=== PATIENT | male | born 1980 | race Caucasian/White ===

== ENCOUNTER 2025-04-25 17:31 | Emergency (ER) | payer OTHER, SELFPAY ==
--- NOTE | ~2025-04-25 | XR_ITS ---
EXAMINATION: XR chest 2V Exam Date/Time: 04/25/2025 18:10 CDT HISTORY: CP Comparison: 07/11/2019. RESULT: Lines, tubes, and devices: None. Lungs and pleura: Clear. Left lower lobe calcified granuloma. Cardiomediastinal silhouette: Stable. Other: No acute osseous or upper abdominal finding. IMPRESSION: No acute cardiopulmonary process. Reviewed, dictated and finalized at location K.
--- NOTE | ~2025-04-25 | CT_ITS ---
EXAMINATION: CTA chest PE protocol DATE: 04/25/2025 19:56 INDICATION: cp, sob, hx PE TECHNIQUE: Computed tomography angiography (CTA) of the chest was performed with 100 mL Omnipaque-350 intravenous contrast timed to evaluate the pulmonary arteries. Coronal maximum intensity projection 3D-reconstructions were created by the technologist. The dose-length product (DLP) was 549.89 mGy-cm. Automated exposure control and iterative reconstruction technique were employed. COMPARISON: 07/11/2019; x-ray chest 04/25/2025. FINDINGS: Lung parenchyma and airways: Calcified left lower lobe granuloma. Stable right lower lobe granuloma. Patent airways. Pleura: Unremarkable. Thoracic inlet, axillae and chest wall: Unremarkable. Thoracic aorta: No significant dilation. No dissection. Mediastinum: Calcified nodes. Heart and pericardium: Mild cardiomegaly. No pericardial effusion. RV LV ratio less than 1. Coronary artery calcifications: Absent. Upper abdomen: No significant finding. Bones: No acute osseous finding. Pulmonary arteries: Study quality: Study limited by motion artifact, particularly in the left lower l obe, beam hardening, suboptimal bolus, and late phase. The subsegmental left lower lobe pulmonary art eries are not adequately evaluated. Small segmental (axial 97/277) and subsegmental (coronal 66/116) nonocclusive emboli present in lingular branches. IMPRESSION: Small segmental and subsegmental nonocclusive emboli present in the lingular branches. Small subsegme ntal emboli may be present in the left lower lobe but obscured by motion artifact. Small clot burden. No evidence of right heart strain. Otherwise, no acute process detected in the chest. Reviewed, dictated and finalized at location K. IMPRESSION: Small segmental and subsegmental nonocclusive emboli present in the lingular br anches. Small subsegmental emboli may be present in the left lower lobe but obs cured by motion artifact. Small clot burden. No evidence of right heart strain. Otherwise, no acute process detected in the chest.
--- NOTE | 2025-04-25 17:32 | ECG_ITS ---
Test Date: 2025-04-25 17:36:34 Measurements Intervals [place] Rate: 78 P: 46 [place]: 170 QRS: 47 QRSD: 94 T: 12 QT: 337 QTc: 384 Interpretive Statements SINUS RHYTHM SIGNIFICANT ARTIFACT IN LIMB LEADS No previous ECG available for comparison Electronically Signed On 04-25-2025 18:09:38 CDT by Kaiser Pearce M.D.
--- OUTSIDE RECORDS SUMMARY | 2025-04-25 17:33 | XMS_ITS | Clinical Summary ---
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
--- OUTSIDE RECORDS SUMMARY | 2025-04-25 17:33 | XMS_ITS | Clinical Summary ---
Author Organization [facility] Address [address] [place] [address] Care Team Providers Care Store Stocker Name Role Phone Chapin Damon MD Primary Care Provider Allergies No known active allergies Medications lisinopril (PRINIVIL) 10 MG tablet Take 10 mg by mouth daily. Active sertraline (ZOLOFT) 100 MG tablet Take 100 mg by mouth daily. Active LORazepam (ATIVAN) 1 MG tablet Take 1 mg by mouth every 6 (six) hours as needed for Anxiety. Active meloxicam (MOBIC) 15 MG tabletIndications: Neural foraminal stenosis of lumbar spine,Lumbar radiculopathy Take 1 tablet (15 mg total) by mouth daily. 30 tablet 2 3 Active Active Problems Problem Noted Date Diagnosed Date Lumbar radiculopathy 10/04/2022 Overview (10/04/2022): Added automatically from request for surgery [id number] Social History Tobacco Use Types Packs/Day Years Used Date Smoking Tobacco: Never Smokeless Tobacco: Never Tobacco Cessation:Counseling Given: Not Answered Alcohol Use Standard Drinks/Week Comments Yes 0 (1 standard drink = 0.6 oz pur e alcohol) occ. Sex and Gender Information Value Date Recorded Sex Assigned at Not on file Legal Sex Male 8:55 AM AGENT SPA DESK Gender Identity Not on file Sexual Orientation Not on file Last Filed Vital Signs Vital Sign Reading Time Taken Comments Blood Pressure 134/86 10/12/2022 1:39 PM AGENT SPA DESK Pulse 67 10/12/2022 1:39 PM AGENT SPA DESK Temperature 36.6 C (97.9 F) 10/12/2022 1:39 PM AGENT SPA DESK Respiratory Rate 16 10/12/2022 1:39 PM AGENT SPA DESK Oxygen Saturation 97% 10/12/2022 1:39 PM AGENT SPA DESK Inhaled Oxygen Concentration - - Weight 91.2 kg (201 lb) 11/02/2022 11:06 AM AGENT SPA DESK Height 175.3 cm (5' 9) 11/02/2022 11:06 AM AGENT SPA DESK Body Mass Index 29.68 11/02/2022 11:06 AM AGENT SPA DESK Plan of Treatment Health Maintenance Due Date Last Done Comments Annual Physical 1983 DTaP, Tdap and Td Vaccines (6 - Tdap) 04/11/1995 04/10/1995, 05/05/1986, 10/26/1981, Additional history exists Hepatitis C 1998 Hepatitis B Vaccines (1 of 3 - 19+ 3-dose series) 1999 HPV Vaccines (1 - 3-dose SCDM series) 2007 COVID-19 Vaccine ( season) 2024 05/21/2022, 11/27/2021, 11/06/2021 Meningococcal B Vaccine Aged Out No l onger eligible based on patient's age to complete this topic Meningococcal Vaccine Aged Out No chris fidel eligible based on patient's age to complete this topic Pneumococcal Vaccine: Pediatrics (0 to 5 Years) and At-Risk Patients (6 to 49 Years) Aged Out No longer eligible based on patient's age to complete this topic RSV Immunizations Under 20 Months Aged Out No longer eligible based on patient's age to complete this topic Insurance [facility] Care Teams Store Stocker Relationship Specialty Start Date End Date Chapin Damon MD [address] [place] [phone] PCP - General FAMILY PRACTICE 07/27/22
--- OUTSIDE RECORDS SUMMARY | 2025-04-25 17:33 | XMS_ITS | Encounter Summary ---
Author Organization [facility] Address [address] [place] [address] Care Team Providers Care Mine Supervisor Name Role Phone Chapin Damon MD Primary Care Provider Encounter Details Date Type Department Care Team (Late st Contact Info) Description 10/06/2005 Emergency [facility] Tristin Baker, DO [address] [place] [address] Er, Authorized P NO ADDRESS ON FILE CONCUSSION W COMA NOS (Primary Dx) Social History Tobacco Use Types Packs/Day Years Used Date Smoking Tobacco: Never Assessed Sex and Gender Information Value Date Recorded Sex Assigned at Not on file Legal Sex Male 4:40 AM SECURITY CONTROL ASSESSOR Gender Identity Not on file Sexual Orientation Not on file documented as of this encounter Plan of Treatment Not on file documented as of this encounter Procedures Procedure Name Priority Date/Time Associated Diagnosis Comments POC, BLOOD GASES Routine 10/06/2005 4:09 AM SECURITY CONTROL ASSESSOR ED HOLD Routine 10/06/2005 3:57 AM SECURITY CONTROL ASSESSOR documented in this encounter Results * (ABNORMAL) POC RT, BLOOD GASES (10/06/2005 4:09 AM SECURITY CONTROL ASSESSOR) PH MVBG 7.37 7.32 - 7.43 INTERFACE SYSTEM PCO2 VENOUS 51(H) 38 - 50 mm Hg INTERFACE SYSTEM PO2 MVBG 23(L) 25 - 40 mm Hg INTERFACE SYSTEM O2 SAT EST MVBG POC 38(L) 40 - 70 % INTERFACE SYSTEM BASE EXCESS VENOUS 3.1(H) -2.0 - 3.0 mmol/L INTERFACE SYSTEM HCO3 MIXED VENOUS 30(H) 22 - 29 mmol/L INTERFACE SYSTEM SODIUM POC 139 135 - 145 mmol/L INTERFACE SYSTEM POTASSIUM POC 3.8 3.5 - 4.9 mmol/L INTERFACE SYSTEM CALICUM IONIZED, WHOLE BLOOD 4.65(L) 4.76 - 5.16 mg/dL INTERFACE SYSTEM HEMATOCRIT POC 46.0 40.0 - 48.0 % INTERFACE SYSTEM FIO2 21 INTERFACE SYSTEM COMMENT, GASES POC TRAUMA MOCKINGBIRD INTERFACE SYSTEM 10/06/2005 4:09 AM SECURITY CONTROL ASSESSOR us Authorized P Er CHEMISTRY ORDERABLES Final Resul t Performing Organization Address [facility]/ZIP Co de Phone Number INTERFACE SYSTEM Refer to clinic/hospital department * ED HOLD (10/06/2005 3:57 AM SECURITY CONTROL ASSESSOR) SPECIMEN HOLD, BLOOD 7 days INTERFACE SYSTEM 10/06/2005 3:57 AM SECURITY CONTROL ASSESSOR us Tristin Baker DO CHEMISTRY ORDERABLES Final R esult INTERFACE SYSTEM Refer to clinic/hospital department documented in this encounter Visit Diagnoses Diagnosis Concussion with loss of consciousness of unspecified duration- Primary documented in this encounter Care Teams Mine Supervisor Relationship Specialty Start Date End Date Chapin Damon MD [address] [place] [phone] PCP - General Family Practice 01/16/23 documented as of this encounter
--- OUTSIDE RECORDS SUMMARY | 2025-04-25 17:33 | XMS_ITS | Clinical Summary ---
Author Organization [facility] Address [address] [place] [address] Phone Care Team Providers Care Vault Mechanic Name Role Phone Chapin Damon MD Primary Care Provider [phone] Allergies No known active allergies Medications lisinopril (PRINIVIL, ZESTRIL) 10 MG Tablet Take 10 mg by mouth daily. Active Social History Tobacco Use Types Packs/Day Years Used Date Smoking Tobacco: Never Smokeless Tobacco: Never Tobacco Cessation:Counseling Given: Not Answered Alcohol Use Standard Drinks/Week Comments Not Currently 0 (1 standard drink = 0.6 oz pur e alcohol) Sex and Gender Information Value Date Recorded Sex Assigned at Not on file Legal Sex Male 4:34 PM CDT Gender Identity Not on file Sexual Orientation Not on file Last Filed Vital Signs Vital Sign Reading Time Taken Comments Blood Pressure 140/87 12/29/2022 12:17 PM CDT Pulse 92 12/29/2022 12:17 PM CDT Temperature 36.7 C (98 F) 12/29/2022 12:17 PM CDT Respiratory Rate 20 12/29/2022 12:17 PM CDT Oxygen Saturation 99% 12/29/2022 12:17 PM CDT Inhaled Oxygen Concentration - - Weight 92.1 kg (203 lb) 12/29/2022 11:36 AM CDT Height - - Body Mass Index - - Plan of Treatment Health Maintenance Due Date Last Done Comments Hepatitis C Virus (HCV) Screening 1980 TdaP Immunization 1980 Human Papillomavirus (HPV) Immunization (1 - Male 3-dose series) 1995 Hepatitis B Immunization (1 of 3 - 19+ 3-dose series) 1999 SARS-COV-2 Immunization (2023- season) 2024 Influenza Immunization (#1) 2025 Respiratory Syncytial Virus (RSV) Immunization (Adult) (1 - 1-dose 75+ series) 2055 Meningococcal Immunization (ACWY) Aged Out No longer eligible based on patient's age to complete this topic Pneumococcal Immunization Combined Aged Out No longer eligible based on patient's age to complete this topic Rotavirus Immunization Aged Out No lo nger eligible based on patient's age to complete this topic Insurance [facility] Care Teams Vault Mechanic Relationship Specialty Start Date End Date Chapin Damon MD [address] [id number] PCP - General Family Medicine 12/29/22
--- OUTSIDE RECORDS SUMMARY | 2025-04-25 17:33 | XMS_ITS | Encounter Summary ---
Author Organization [facility] Address [address] [place] [address] Care Team Providers Care Greens Cutter Name Role Phone Chapin Damon MD Primary Care Provider Encounter Details Date Type Department Care Team (Late st Contact Info) Description 10/06/2005 Outpatient Historical [facility] Trauma and General Surgery [address] 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
[2025-04-25 18:00] VITALS: BP 125/78; PULSE 69; RESP 15; O2SAT 95
[2025-04-25 18:05] LABS: Alanine Aminotransferase 31 U/L (6-50); Albumin Level 4.3 g/dL (3.5-5.1); Alkaline Phosphatase 69 U/L (38-126); Anion Gap 8 mmol/L (4-12); Aspartate Amino Transferase 27 U/L (17-59); Bilirubin,Total 0.9 mg/dL (0.2-1.3); Blood Urea Nitrogen 14 mg/dL (9-20); Calcium 9.4 mg/dL (8.4-10.2); Carbon Dioxide 26 mmol/L (22-30); Chloride 102 mmol/L (98-107); Estimated Glomerular Filt Rate > 60; Glucose 105 mg/dL (65-110); Lipase 91 U/L (23-300); Potassium 4.5 mmol/L (3.4-5.0); Sodium 136 mmol/L (137-145); Total Protein 6.9 g/dL (6.3-8.2)
[2025-04-25 18:17] LABS: Troponin I < 0.012 ng/mL (0.000-0.034)
[2025-04-25 18:31] LABS: Hematocrit 48.1 % (42.0-52.0); Hemoglobin 16.8 g/dL (14.0-18.0); Immature Granulocyte Percent A 0.6 % (0-0.5); Lymphocytes Absolute Auto 1.76 K/mm3 (0.9-3.2); Mean Corpuscular HGB Conc 34.9 g/dl (32-36); Mean Corpuscular Hemoglobin 31.9 pg (26-34); Mean Corpuscular Volume 91.3 fl (80-100); Nucleated Red Blood Cells Absolute Auto 0.000 K/mm3 (0.0-0.012); Nucleated Red Blood Cells Perc 0.0 % (0.0-0.2); Platelet Count Result 206 k/mm3 (150-375); Red Blood Count 5.27 M/mm3 (4.6-6.20); White Blood Count 6.9 K/mm3 (4.5-10.0)
[2025-04-25 18:42] LABS: INR 1.0; Prothrombin Time 13.4 Seconds (11.1-14.7)
[2025-04-25 18:43] LABS: Partial Thromboplastin Time 23.4 Seconds (22.3-36.8)
--- NOTE | 2025-04-25 18:59 | ED.CHESTPAIN ---
HPI - Chest Pain General Chief Complaint: Chest Pain Stated Complaint: BACK AND CHEST PAIN Time Seen by Provider: 04/25/25 18:48 Source: patient Mode of arrival: ambulatory Limitations: no limitations History of Present Illness HPI narrative: This is a 44 year old male that presents to the ER for chest pain. Ongoing over the last week. Reports chest pain, back pain, some shortness of breath. Reports history of PE and his symptoms feel similar to previous. Reports a mild cough. Reports he travels often. No recent surgeries. Denies fever, lower extremity edema. Related Data Allergies Allergy/AdvReac Type Severity Reaction Status Date / Time No Known Allergies Allergy Verified 04/25/25 18:05 Review of Systems Review of Systems: All systems reviewed & are unremarkable except as noted in HPI and below PMFSH Past Medical History Medical History (Updated 04/25/25 @ 21:43 by Cheryl Pacheco PA-C) History of hyperlipidemia History of hypertension Exam Narrative: GENERAL: Well-appearing, well-nourished, and in no acute distress. HEAD: Normocephalic, atraumatic. EYES: EOMI. CHEST: Clear to auscultation. No respiratory distress. No wheezes rales or rhonchi HEART: Regular rate and rhythm. No murmur heard. Normal peripheral pulses. EXTREMITIES: Normal range of motion. No edema. SKIN: Warm, dry, no rash. NEURO: No focal deficits. Alert and oriented x3. PSYCH: Normal mood and affect Course Course Emergency Course: Patient updated on his workup and agrees with plan of care Vital Signs Vital signs: Vital Signs Pulse Rate 69 04/25/25 18:00 Respiratory Rate 15 04/25/25 18:00 Blood Pressure 125/78 04/25/25 18:00 Pulse Oximetry 95 04/25/25 18:00 Oxygen Delivery Room Air 04/25/25 18:00 Temperature 98.3 F 04/25/25 19:19 Pulse Rate 70 04/25/25 19:19 Respiratory Rate 16 04/25/25 19:19 Blood Pressure 140/87 04/25/25 19:19 Pulse Oximetry 96 04/25/25 19:19 Oxygen Delivery Room Air 04/25/25 18:00 MDM - Chest Pain MDM Narrative Medical decision making narrative: Patient presents to the emergency department for chest pain, back pain. Patient's vitals are stable. CBC and metabolic panel without concerning findings. EKG without acute ST changes, baseline and 3 hour troponin are negative. CTA chest obtained for further evaluation due to history of PE. CTA of the chest shows small segmental and subsegmental nonocclusive emboli present in the lingular branches. Small clot burden. No evidence of right heart strain. Patient is not tachycardic or hypoxic. Patient updated on his workup and agrees with plan of care. Will be started on Xarelto and instructed on close follow-up with his PCP. He was given strict return precautions Differential Diagnosis Differential diagnosis: Likely stable angina, costochondritis, chest pain and other (PE) Lab Data Attestation: I reviewed the patient's lab results. 04/25/25 18:24 04/25/25 17:43 Labs: Lab Results 04/25/25 04/25/25 04/25/25 Range/Units 17:43 18:24 20:30 WBC 6.9 (4.5-10.0) K/mm3 RBC 5.27 (4.6-6.20) M/mm3 Hgb 16.8 (14.0-18.0) g/dL Hct 48.1 (42.0-52.0) % MCV 91.3 (80-100) fl MCH 31.9 (26-34) pg MCHC 34.9 (32-36) g/dl RDW 11.5 (11.5-14.5) % Plt Count 206 (150-375) k/mm3 MPV 9.8 (7.4-10.4) fl Immature Gran % (Auto) 0.6 H (0-0.5) % Neut % (Auto) 60.5 (45.5-73.1) % Lymph % (Auto) 25.4 (18.3-44.2) % [place] % (Auto) 9.7 H (2.6-8.5) % Eos % (Auto) 3.2 (0-4.4) % Baso % (Auto) 0.6 (0.2-1.2) % Lymph # (Auto) 1.76 (0.9-3.2) K/mm3 [place] # (Auto) 0.7 H (0.1-0.6) K/mm3 Eos # (Auto) 0.2 (0-0.3) K/mm3 Baso # (Auto) 0.0 (0.0-0.1) K/mm3 Abs Immat Gran (auto) 0.04 H (0.00-0.031) K/mm3 Absolute Neuts (auto) 4.2 (1.3-6.7) K/mm3 Absolute Nucleated RBC 0.000 (0.0-0.012) K/mm3 Nucleated RBC % 0.0 (0.0-0.2) % PT 13.4 (11.1-14.7) Seconds INR 1.0 APTT 23.4 (22.3-36.8) Seconds D-Dimer < 0.27 (<0.48) ug/mL Sodium 136 L (137-145) mmol/L Potassium 4.5 (3.4-5.0) mmol/L Chloride 102 (98-107) mmol/L Carbon Dioxide 26 (22-30) mmol/L Anion Gap 8 (4-12) mmol/L BUN 14 (9-20) mg/dL Creatinine 0.99 (0.7-1.3) mg/dL Estim Creat Clear Calc Not Reportable Estimated GFR > 60 (59 - ) Glucose 105 (65-110) mg/dL Calcium 9.4 (8.4-10.2) mg/dL Total Bilirubin 0.9 (0.2-1.3) mg/dL AST 27 (17-59) U/L ALT 31 (6-50) U/L Alkaline Phosphatase 69 (38-126) U/L Troponin I < 0.012 < 0.012 (0.000-0.034) ng/mL Total Protein 6.9 (6.3-8.2) g/dL Albumin 4.3 (3.5-5.1) g/dL Lipase 91 (23-300) U/L Imaging Data Radiologist's impression: ITS Impressions Chest X-Ray 04/25/25 18:54 IMPRESSION: No acute cardiopulmonary process. Chest CTA 04/25/25 20:13 IMPRESSION: Small segmental and subsegmental nonocclusive emboli present in the lingular branches. Small subsegmental emboli may be present in the left lower lobe but obscured by motion artifact. Small clot burden. No evidence of right heart strain. Otherwise, no acute process detected in the chest. ECG Data EKG #1: ECG completion date: 04/25/25 EKG Interpretation: normal rate, sinus rhythm, no ST changes and normal QT Critical Care Time Critical Care Time Critical Care Time: No Discharge Plan Discharge Clinical Impression: Pulmonary embolism Qualifiers: Pulmonary embolism type: single subsegmental (without acute cor pulmonale) Qualified Code(s): I26.93 - Single subsegmental thrombotic pulmonary embolism without acute cor pulmonale Patient Disposition: Home Condition: Stable Instructions: Pulmonary Embolism (ED) Additional Instructions: Return to the Emergency Department if you experience fever, worsening chest pain, difficulty breathing, or any other symptoms that are concerning to you Take Xarelto as prescribed Follow up with your primary care doctor Patient Language: Djiboutian Prescriptions: New Xarelto DVT-PE Treat 30d Start 15 mg (42)- 20 mg (9) tablets,dose pack See Rx Instructions .ROUTE .COMPLEX Qty: 51 0RF Rx Instructions: take one-15 mg tablet twice daily for 21 days, then one-20 mg tablet once daily; must take with meal/food Follow-up/Referrals: PHYSICIAN NOT ON STAFF,NONSTAFF [Non-Staff] -
--- OUTSIDE RECORDS SUMMARY | 2025-04-25 19:03 | XMS_ITS | Clinical Summary ---
Author Organization [facility] Address [address] [place] [address] Phone Care Team Providers Care Aircraft Log Clerk Name Role Phone Chapin Damon MD Primary Care Provider [phone] Allergies No known active allergies Medications lisinopril [...] patient's age to complete this topic Insurance [facility] Care Teams Aircraft Log Clerk Relationship Specialty Start Date End Date Chapin Damon MD [address] [phone] PCP - General Family Medicine 12/29/22
--- OUTSIDE RECORDS SUMMARY | 2025-04-25 19:03 | XMS_ITS | Clinical Summary ---
Author Organization [facility] Address [address] [place] [address] Care Team Providers Care Personal Counselor Name Role Phone Chapin Damon MD Primary Care Provider [phone] Allergies No known active allergies Medications lisinopril [...] (10/04/2022): Added automatically from request for surgery [id number] Social History Tobacco Use Types Packs/Day Years Used Date Smoking Tobacco: Never Smokeless Tobacco: Never Tobacco Cessation:Counseling Given: Not Answered Alcohol Use Standard Drinks/Week Comments Yes 0 (1 standard drink = 0.6 oz pur e alcohol) occ. Sex and Gender Information Value Date Recorded Sex Assigned at Not on file Legal Sex Male 8:55 AM MERCHANDISE DELIVERER Gender Identity Not on file Sexual Orientation Not on file Last Filed Vital Signs Vital Sign Reading Time Taken Comments Blood Pressure 134/86 10/12/2022 1:39 PM MERCHANDISE DELIVERER Pulse 67 10/12/2022 1:39 PM MERCHANDISE DELIVERER Temperature 36.6 C (97.9 F) 10/12/2022 1:39 PM MERCHANDISE DELIVERER Respiratory Rate 16 10/12/2022 1:39 PM MERCHANDISE DELIVERER Oxygen Saturation 97% 10/12/2022 1:39 PM MERCHANDISE DELIVERER Inhaled Oxygen Concentration - - Weight 91.2 kg (201 lb) 11/02/2022 11:06 AM MERCHANDISE DELIVERER Height 175.3 cm (5' 9) 11/02/2022 11:06 AM MERCHANDISE DELIVERER Body Mass Index 29.68 11/02/2022 11:06 AM MERCHANDISE DELIVERER Plan of Treatment Health Maintenance Due Date [...] patient's age to complete this topic Insurance [facility] Care Teams Personal Counselor Relationship Specialty Start Date End Date Chapin Damon MD [address] [place] [phone] PCP - General FAMILY PRACTICE 07/27/22
[2025-04-25 19:19] VITALS: BP 140/87; PULSE 70; RESP 16; TEMP 36.8; O2SAT 96
--- NOTE | 2025-04-25 19:26 | PC.NURSE ---
assumed care of pt from YOSI Cordon. pt resting on stretcher, family at bedside. pt informed we are waiting on cta pulmonary. no questions at this time
[2025-04-25 21:08] LABS: Troponin I < 0.012 ng/mL (0.000-0.034)
[2025-04-25] MEDS: RIVAROXABAN 15 MG TABLET PO (21:44)
[2025-04-25 21:59] VITALS: BP 137/49; PULSE 70; RESP 16; TEMP 36.9; O2SAT 97
== END 2025-04-25 22:00 | disposition home or self-care (01) ==
PROVIDERS: Emergency Medicine; Emergency Provider Physician Assistant
DX: I26.93 Single subsegmental thrombotic pulmonary embolism without acute cor pulmonale (principal); E78.5 Hyperlipidemia, unspecified; I10 Essential (primary) hypertension
CPT/HCPCS: 36415; 71046; 71275; 80053; 83690; 84484; 85025; 85380; 85610; 85730; 93005; 99284; A9270; Q9967